=== PATIENT | male | born 1980 | race Caucasian/White ===

== ENCOUNTER 2016-11-24 07:35 | Emergency (ER) | payer OTHER ==
[~2016-11-24] VITALS: Ht 167.6 cm; Wt 109.0 kg
[2016-11-24 07:39] VITALS: TEMP 37.2; Ht 167.6 cm; Wt 109.0 kg
--- NOTE | 2016-11-24 07:54 | EMERGENCY ROOM VISIT NOTE ---
History First contact with patient: 07:45 Chief Complaint: FALL Stated Complaint: FALL History of Present Illness The patient is a 36 year old male who presents to the Emergency Room with complaints of fall. The patient was at work when he slipped on the ice and fell backwards striking the posterior aspect of his head on the ground. The patient reports a large area of swelling and a small amount of bleeding. The patient rates his discomfort a 3/10. The patient was started on Eliquis this week for atrial fibrillation with a planned cardioversion. He denies any loss of consciousness, nausea or vomiting. He denies any neck pain. He denies any numbness, tingling or weakness in the upper extremities. He denies any chest pain or trouble breathing. He denies any other symptoms. Review of Systems A 10 system review of systems was completed with positives and pertinent negatives listed in the HPI. Past Medical/Surgical History Medical Problems: (1) Atrial fibrillation Social History Smoking Status: Never Smoker Occupation Status: employed Current/Historical Medications Scheduled Apixaban (Eliquis), 5 MG PO BID Metoprolol Succ (Toprol Xl) (Toprol-Xl), 25 MG PO DAILY Omeprazole (Prilosec), 40 MG PO DAILY Allergies Coded Allergies: No Known Allergies (Unverified , 11/24/16) Physical Exam Vital Signs Date Time Temp Pulse Resp B/P Pulse Ox O2 Delivery O2 Flow Rate FiO2 11/24/16 08:34 84 16 161/91 95 11/24/16 07:39 37.2 86 16 153/86 96 Room Air Physical Exam VITALS: Vitals are noted on the nurse's note and reviewed by myself. Vital signs stable. GENERAL: The patient is a 36-year-old male, in no acute distress, nondiaphoretic , well-developed well-nourished. SKIN: There is a very large hematoma to the posterior scalp. There is a very superficial, nonbleeding abrasion. There is no significant laceration. There is no tenting of the skin. Capillary reflex less than 2 seconds. HEAD: Normocephalic atraumatic. EARS: External auditory canals clear, tympanic membranes pearly urrutia without erythema or effusion bilaterally. No hemotympanums. No capps sign. No mastoid tenderness. EYES: Pupils equal round and reactive to light and accommodation. Conjunctivae without injection, sclerae without icterus. Extraocular movements intact. NOSE: Patent, turbinates without inflammation or discharge. No sinus tenderness. No septal hematoma or bleeding. FACE: No facial tenderness. Full range of motion of the jaw without tenderness. MOUTH: Mucous membranes moist. Pharynx without erythema or exudate. Uvula midline. Airway patent. Tongue does not deviate. NECK: Supple without nuchal rigidity. Cervical spine is nontender. Full range of motion of the neck without tenderness. No JVD. HEART: Irregularly irregular rhythm, regular rate LUNGS: Clear to auscultation bilaterally without wheezes, rales or rhonchi. No retractions or accessory muscle use. No chest tenderness. MUSCULOSKELETAL: No muscle atrophy, erythema, or edema noted. Full range of motion in all extremities. Normal gait. Strength 5/5 throughout. NEURO: Patient was alert and oriented to person place and time. Normal Mini- Mental status exam. No focal neurological deficits. Medical Decision & Procedures ER Provider Diagnostic Interpretation: HEAD CT NONCONTRAST CT DOSE: 614.27 mGy.cm HISTORY: Trauma fall, head injury, on [place] TECHNIQUE: Multiaxial CT images of the head were performed without the use of intravenous contrast. Comparison: None. Findings: The paranasal sinuses and mastoid air cells are clear. The calvarium and skull base are intact. The ventricles and sulci are within normal limits. There is no mass, hematoma, midline shift, or acute infarct. Impression: No acute intracranial abnormality. ED Course The patient was seen and examined. Previous visits were reviewed. The patient does take Eliquis for atrial fibrillation. He slipped and fell at work and struck the back of his head. He has a large hematoma. He does not have any symptoms to suggest concussion. CT scan of the brain does not reveal any acute intracranial bleeding or skull fracture. The patient was advised to monitor for delayed bleeding symptoms and to return immediately if he develops them. He was given a note for work through the weekend and should follow up with and employer approved Worker's Compensation doctor. Medical Decision The differential diagnosis includes intracranial bleeding, skull fracture, contusion, hematoma, concussion, among others Impression Primary Impression: Closed head injury Additional Impression: Hematoma Departure Information Dispostion Home / Self-Care Condition GOOD Referrals No Doctor, Assigned (PCP) Patient Instructions ED Head Injury Closed, [facility] Additional Instructions Ice frequently over the next 24-48 hours Return immediately with severe headache, vomiting or generalized worsening symptoms Rest over the weekend Follow-up with occupational medicine Sunday or Sunday; call for an appointment Problem Qualifiers Primary Impression: Closed head injury Encounter type: initial encounter Qualified Codes: S09.90XA - Unspecified injury of head, initial encounter
--- NOTE | 2016-11-24 08:10 | DIAGNOSTIC IMAGING REPORT ---
HEAD CT NONCONTRAST CT DOSE: 614.27 mGy.cm HISTORY: Trauma fall, head injury, on [place] TECHNIQUE: Multiaxial CT images of the head were performed without the use of intravenous contrast. Comparison: None. Findings: The paranasal sinuses and mastoid air cells are clear. The calvarium and skull base are intact. The ventricles and sulci are within normal limits. There is no mass, hematoma, midline shift, or acute infarct. Impression: No acute intracranial abnormality. Electronically signed by: Ruddy Sandoval M.D. 11/24/2016 8:09 AM Dictated Date/Time: 11/24/2016 8:07 AM
[2016-11-24] MEDS ORDERED: APIX1TAB3 PO (08:28)
[2016-11-24] MEDS ORDERED: OMEP40CA41 PO (08:28)
[2016-11-24] MEDS ORDERED: METO25TA3 PO (08:28)
[2016-11-24 08:34] VITALS: BP 161/91; PULSE 84; O2SAT 95
== END 2016-11-24 08:35 | disposition home or self-care (01) ==
LOC: EDBD 07:35 → C.EDA 07:37
DX: S09.90XA Unspecified injury of head, initial encounter (principal); S00.03XA Contusion of scalp, initial encounter; I48.91 Unspecified atrial fibrillation; Z79.899 Other long term (current) drug therapy; Z79.01 Long term (current) use of anticoagulants; W00.0XXA Fall on same level due to ice and snow, initial encounter; Y99.0 Civilian activity done for income or pay